=== PATIENT | female | born 1985 | race African-American/Black ===

== ENCOUNTER 2016-12-23 11:18 | Emergency (ER) | payer OTHER ==
--- NOTE | ~2016-12-23 | EKG ---
PATIENT: VINCENZO LOPEZ UNIT #: [id number] Ventricular Rate: 73 BPM Atrial Rate: 73 BPM P-R Interval: 144 ms QRS Duration: 86 ms Q-T Interval: 392 ms QTC Calculation(Bezet): 431 ms P Hardesty: 58 degrees Calculated R Hardesty: 57 degrees Calculated T Hardesty: 43 degrees Diagnosis Line: Normal sinus rhythm with sinus arrhythmia Diagnosis Line: Normal ECG Diagnosis Line: No previous ECGs available Diagnosis Line: Confirmed by ELISEO MARTINEZ MD ([id number]) on Diagnosis Line: 12/24/2016 1:29:41 PM INTERPRETING MD: MICHELLE MEDEIROS
--- NOTE | ~2016-12-23 | CT71 ---
[facility] RADIOLOGY TEXT RESULTS PATIENT: VINCENZO LOPEZ LOCATION: [facility] : [birth year] UNIT #: [id number] AGE: [address]: Blilie Estrella MD SEX: F ORDER DR: [id number] [facility]. [place], [place] [address] [id number] MR#: [id number] Acc #: [id number] NAME: VINCENZO LOPEZ : 1985 SEX: F STUDY DATE/TIME: 12/23/2016 13:08 UNIT: LOLA ROOM: STUDY DESCRIPTION: CT Head Wo Contrast Attending Physician: Billie Estrella M.D. Ordering Physician: Billie Estrella M.D. Primary Care Physician: Primary Care Physician No MEDICAL IMAGING REPORT This report is preliminary unless electronic signature is present EXAM CT brain without contrast media HISTORY SUPPLIED Dizziness since yesterday, hit head and passed out. Continued headache. TECHNIQUE Axial imaging of the brain was performed without contrast media. This CT exam was performed with one or more of the following radiation dose reduction techniques: automatic exposure control, adjustment of mA and/or kV according to patient size, and iterative reconstruction. FINDINGS Ventricular size and configuration is normal. No intra- or extraaxial mass lesions, fluid collections, or mass effect are seen. No focal areas of low-attenuation or evidence of acute intracranial hemorrhage. Bone windows are reviewed. Visualized paranasal sinuses and mastoid air cells are clear. There is no evidence of a fracture. CONCLUSION 1. Normal noncontrast CT of the brain. Dictated by... Everett Arambula M.D. THIS IS AN ELECTRONICALLY VERIFIED REPORT Everett Arambula M.D. at 12/24/2016 5:01 PM BRYANNA/christa TD: 12/23/2016 15:56 JOB #: [id number] [facility] A [facility] RADIOLOGY TEXT RESULTS PATIENT: VINCENZO LOPEZ LOCATION: [facility] #: [id number] : [birth year] UNIT #: [id number] AGE: [address]: Billie Estrella MD SEX: F ORDER DR: MEDICAL IMAGING REPORT Page 1 of 1 COPY
[~2016-12-23 11:18] MED LIST: NO MEDICATIONS
[2016-12-23 14:03] LABS: BASOPHIL% 0.4 % (0-2.5); EOSINOPHIL# 0.2 X10e3 (0-0.7); EOSINOPHIL% 2.3 % (0.0-7.0); HEMATOCRIT 34.8 % (35.0-45.0); HEMOGLOBIN 10.9 gm/dL (12.0-16.0); LYMPHOCYTE# 2.3 X10e3 (1.0-3.5); LYMPHOCYTE% 26.4 % (17.0-45.0); MEAN CELL VOLUME 76.9 FL (83-96); MEAN CORPUSCULAR HEMOGLOBIN 24.1 PG (28-34); MEAN CORPUSCULAR HGB CONC 31.4 g/dL (30-36); MEAN PLATELET VOLUME 8.8 FL (6.5-11.5); MONOCYTE# 0.5 X10e3 (0-1.0); MONOCYTE% 5.8 % (3.0-12.0); NEUTROPHIL# 5.8 X10e3 (1.5-7.1); NEUTROPHIL% 65.1 % (40-75); PLATELET COUNT 269 X10e3 (140-420); RED BLOOD COUNT 4.53 X10e (3.90-5.30); RED CELL DISTRIBUTION WIDTH 15.8 % (11.0-15.5); WHITE BLOOD COUNT 8.9 X10e3 (4.0-10.5)
[2016-12-23 14:08] LABS: DIFF IND NO
[2016-12-23 14:13] LABS: URINE SOURCE CLEAN CATCH
[2016-12-23 14:17] LABS: URINE APPEARANCE CLOUDY; URINE BILIRUBIN NEG (NEG); URINE BLOOD NEG (NEG); URINE COLOR YELLOW; URINE GLUCOSE NEG (NEG); URINE KETONE NEG (NEG); URINE LEUKOCYTE ESTERASE 1+ (NEG); URINE NITRATE NEG (NEG); URINE PH 6.5 (5-8); URINE PROTEIN NEG (NEG); URINE SPECIFIC GRAVITY 1.025 (1.003-1.035)
[2016-12-23 14:20] LABS: CULTURE INDICATED? YES; URBCS1 AUWI 0-2 /[HPF] (0-2); URINE BACTERIA AUWI 3+ (NEGATIVE); URINE SQUAMOUS EPITHELIAL CELL MOD /[HPF]
[2016-12-23 14:29] LABS: ALBUMIN SERUM 3.2 g/dL (3.5-5.0); BILIRUBIN, DIRECT 0.1 mg/dL (0.0-0.2); BILIRUBIN,INDIRECT 0.2 mg/dL (0.0-0.9); BILIRUBIN,TOTAL 0.3 mg/dL (0.2-2.0); BUN/CREATININE RATIO 13.33; CALCIUM SERUM 8.6 mg/dL (8.4-10.2); CREATININE SERUM 0.9 mg/dL (0.6-1.4); GLOM FILT RATE Estimated 99.5 mL/min (>60); PROTEIN TOTAL SERUM 7.2 g/dL (6.0-8.3)
[2016-12-23 14:35] LABS: AMPHETAMINE NEG (NEG); BARBITURATES NEG (NEG); BENZODIAZEPINES NEG (NEG); COCAINE NEG (NEG); MARIJUANA POS (NEG); OPIATES NEG (NEG); TRICYCLIC ANTIDEPRESSANTS NEG (NEG); U METHADONE NEG (NEG)
== END 2016-12-23 14:47 | disposition home or self-care (01) ==
LOC: CED 11:18
PROVIDERS: Student in an Organized Health Care Education/Training Program
DX: S00.93XA Contusion of unspecified part of head, initial encounter (principal); F17.200 Nicotine dependence, unspecified, uncomplicated; W18.00XA Striking against unspecified object with subsequent fall, initial encounter; Y92.009 Unspecified place in unspecified non-institutional (private) residence as the place of occurrence of the external cause
CPT/HCPCS: 36415; 70450; 80048; 80076; 80307; 81003; 84703; 85025; 87086; 93005; 99284